=== PATIENT | female | born 1965 | race Caucasian/White ===

== ENCOUNTER 2018-07-09 10:52 | Emergency (ER) | payer BC, SELFPAY ==
[2018-07-09 11:06] VITALS: BP 148/85; PULSE 69; RESP 16; TEMP 36.4; O2SAT 97
--- NOTE | 2018-07-09 11:10 | ED.GENADUL_ITS ---
Disposition Clinical Impression: Abdominal pain Disposition: HOME Condition: Stable Instructions: Abdominal Pain (ED) Additional Instructions: Please return immediately to the emergency department if you develop any new or worsening symptoms or if you become otherwise concerned. It is extremely important that you make an appointment to be seen in follow-up by your primary care doctor within the next 1-2 weeks. Referrals: Suzie Bianchi MD, [place] [Primary Care Provider] - Medical Decision Making - Lab Data Laboratory Tests 07/09/18 07/09/18 07/09/18 11:13 12:28 13:00 WBC 13.87 H RBC 5.09 Hgb 14.8 Hct 43.6 MCV 85.7 MCH 29.1 MCHC 33.9 RDW 13.9 Plt Count 328 MPV 9.3 Immature Gran % 0.2 Neutrophils % 83.6 Lymphocytes % 14.6 Monocytes % 1.4 Eosinophils % 0.1 Basophils % 0.1 Absolute Neutrophils 11.60 H Absolute Lymphocytes 2.03 Absolute Monocytes 0.19 Absolute Eosinophils 0.01 Absolute Basophils 0.01 Sodium 139 Potassium 4.0 Chloride 103 Carbon Dioxide 23.7 Anion Gap 12.3 H BUN 14 Creatinine 0.62 Estimated GFR/1.73 m2 >= 60.00 Glucose 113 H Calcium 8.7 Total Bilirubin 0.3 AST 18 ALT 39 Alkaline Phosphatase 80 Total Protein 7.7 Albumin 3.5 Lipase 139 Urine Color Yellow Urine Clarity Clear Urine pH 6.0 Ur Specific Marion 1.020 Urine Protein Negative Urine Ketones Negative Urine Blood Moderate H Urine Nitrite Negative Urine Bilirubin Negative Urine Urobilinogen 0.2 Ur Leukocyte Esterase Negative Urine RBC 10-20 H Urine WBC 0-2 Ur Epithelial Cells Moderate Urine Crystals Few amorphous Urine Bacteria Moderate Urine Casts Negative Urine Mucus Negative Urine Other Few renal Ur Culture Indicated? No/sq. contamination Urine Glucose Negative Results reviewed for labs ordered during visit: Yes - Radiology Data CT abd/pelv per radiology: no acute process - Medical Decision Making Chantel Lopez is a 52-year-old woman with a history of hypothyroidism, obstructive sleep apnea presenting to the emergency department with right lower quadrant abdominal pain that began at 7 AM this morning, also with diarrhea since yesterday that is mild. On exam patient has right lower quadrant/right pelvic tenderness to palpation, with worsening right lower quadrant with positive McBurney's point tenderness. No other abdominal tenderness. Exam is otherwise unremarkable. Concern for appendicitis versus UTI versus less likely ovarian pathology versus other. Exam/history not consistent with ACS, sepsis PID/TOA, ovarian torsion. Plan for screening labs, CT scan, IV fluid hydration , IV pain control. CT scan without dye injection capabilities at this time due to malfunction. Discussed with patient that CT scan with IV dye is indicated. Discussed options with her including transfer to another facility with CT versus labs and noncontrast CT here with possible transfer if CT unrevealing versus transfer to another facility after IV placement, labs drawn, pain managed. Patient reports that she would like to leave at this time without any further workup and be transferred to another emergency department for evaluation. Patient requesting pain control. Her is with her to drive her. Plan for IM morphine. [facility] emergency physician not accepting as they have no beds in the case the patient would need admission. Patient accepted to [facility] emergency department for further evaluation and treatment. While discussing transfer [place] [facility], it was made known to me that CT scan here now functional with dye injection capabilities. Plan for labs, CT. Patient is amenable to the plan. Labs non-diagnostic. negative per nursing. Ct reported to me by radiology as negative. Lengthy discussion with Pt re: RTED precautions and importance of outpt f/u with PCP within 1-2 weeks. Pt is amenable to the plan. History of Present Illness - General Chief complaint: Abd Prob Stated complaint: ABDOMINAL PAIN Time Seen by Provider: 07/09/18 11:09 Source: patient, RN notes reviewed Mode of arrival: ambulatory Limitations: no limitations - History of Present Illness Initial comments: Keyonna Alicia is a 52-year-old woman with a history of hypothyroidism, obstructive sleep apnea presenting to the emergency department with abdominal pain. Patient reports that she developed right lower quadrant abdominal pain at approximately 7:00 this morning. Pain does not radiate. She has never had similar pain in the past. She has a history of C-sections and no other abdominal surgeries. She reports pain worse with movement. No change in appetite. She has had diarrhea for the past 2 days that is mild. No constipation. No fever, no vomiting, no cough, no shortness of breath, no other pain, no dysuria, no vaginal discharge. Perimenopausal, currently menstruating. Sexually monogamous with her . - Related Data Magnesium Oxide [Magnesium] 400 mg PO DAILY 03/27/14 Levothyroxine [Levothroid] 200 mcg PO DAILY 07/09/18 Allergies Allergy/AdvReac Type Severity Reaction Status Date / Time gluten Allergy BLOATING Unverified 07/09/18 12:24 YEAST Allergy BELLY Uncoded 07/09/18 12:24 UNCOMFORTABLE Review of Systems Constitutional: denies: fever Eyes: denies: eye pain ENT: denies: ear pain, throat pain, dental pain Respiratory: denies: cough, shortness of breath Cardiovascular: denies: chest pain Endocrine: denies: increased hunger, increased thirst Gastrointestinal: as per HPI, abdominal pain, diarrhea. denies: nausea, vomiting Genitourinary: denies: dysuria, discharge Musculoskeletal: denies: back pain, arthralgia, myalgia Skin: denies: rash Neurological: denies: headache Past Medical History - Past Medical History Hypothyroidism - Social History Smoking status: never smoker Alcohol use: occasionally Drug use: none General Exam - General Limitations: no limitations General appearance: alert, in no apparent distress, other (Pleasant, well and nontoxic appearing, conversing normally) - Head Head exam: Present: atraumatic, normocephalic, normal inspection - Eye Eye exam: Absent: scleral icterus, conjunctival injection Pupils: Absent: irregular, unequal, miosis, mydriatic - ENT ENT exam: Present: mucous membranes moist - Neck Neck exam: Present: normal inspection - Respiratory Respiratory exam: Present: normal lung sounds bilaterally. Absent: respiratory distress - Cardiovascular Cardiovascular Exam: Present: regular rate, normal rhythm, normal heart sounds - GI/Abdominal GI/Abdominal exam: Present: soft, tenderness (Right lower quadrant tenderness, positive McBurney's point tenderness. No pelvic TTP. Negative Moreno sign. No other abdominal tenderness. No peritoneal signs.). Absent: distended, guarding , rebound, mass - Extremities Exam Extremities exam: Present: normal inspection. Absent: pedal edema - Back Exam Back exam: Present: normal inspection. Absent: rash noted - Neurological Exam Neurological exam: Present: alert, normal gait, other (Grossly nonfocal, normal tone). Absent: altered - Psychiatric Psychiatric exam: Present: normal affect, normal mood - Skin Skin exam: Present: warm, dry, intact, normal color. Absent: rash Course Vital Signs - 24 hr 07/09/18 11:06 Temperature 36.4 C L Pulse 69 Respiratory 16 Rate Blood Pressure 148/85 Pulse Oximetry 97
[2018-07-09] MEDS: MORPHine 10 MG/ML VIAL 4 MG IM (12:08)
--- NOTE | 2018-07-09 12:09 | NUR.NOTE ---
Nursing Note: Pt allows [facility] IM for her pain while awaiting transfer information as [facility] unable to provide DI study necessary for further care.
--- NOTE | 2018-07-09 12:28 | DI.RPTCT_ITS ---
SYMPTOMS/DIAGNOSIS: RIGHT LOWER QUADRANT ABDOMINAL PAIN CT OF THE ABDOMEN AND PELVIS: There are no prior comparison exams. Images were performed from the lung bases through the ischial tuberosities after IV and without oral contrast. The lung bases are clear. The liver, spleen, pancreas, kidneys and right adrenal are unremarkable. There is a tiny nodule on the left adrenal, likely an adenoma. There is a single calcified stone in the gallbladder. There is no gallbladder wall thickening, or abnormal distention or evidence of biliary dilatation. The appendix appears normal. There is no bowel dilatation or inflammatory changes. The bladder is unremarkable. There is a fat-containing umbilical hernia. There is a rounded cystic area in the region of the cervix, which may represent a nabothian cyst. The aorta is normal in diameter. There are degenerative changes in the spine, as well as scoliosis, greatest at L3-4 through L5-S1. IMPRESSION: No acute abnormality. Incidental findings as mentioned above.
[2018-07-09] MEDS: Normal Saline 1,000 ML 1000 ML IV (12:40)
[2018-07-09 12:56] LABS: Bilirubin Negative (Negative); Blood Moderate (Negative); Clarity Clear; Glucose Negative (Negative); Ketones Negative (Negative); Leukocyte Esterase Negative (Negative); Nitrite Negative (Negative); Urobilinogen 0.2 EU/dL (Up TO 0.2)
[2018-07-09 13:07] LABS: Abs Immature Grans 0.03 k/cumm (0.0-0.09); Absolute Basophil Count 0.01 k/cumm (0.0-0.2); Absolute Eosinophil Count 0.01 k/cumm (0.0-0.7); Basophils % 0.1; Eosinophils % 0.1; HCT 43.6 % (36.0-46.0); HGB 14.8 g/dL (12.0-15.5); Immature Grans % 0.2; Lymphocytes % 14.6; Mean Corp. HGB Concentration 33.9 g/dL (32.0-36.0); Mean Corpuscular Hemoglobin 29.1 pg (27.0-33.0); Mean Corpuscular Volume 85.7 fL (80-95); Mean Platelet Volume 9.3 fL (8.0-11.0); Monocytes % 1.4; Neutrophils % 83.6; Platelet Count 328 x1000/uL (130-400); RBC 5.09 m/cumm (4.00-5.20); RBC Distribution Width 13.9 % (11.7-14.6); White Blood Cell Count 13.87 k/cumm (4.4-10.8)
[2018-07-09 13:08] LABS: WBC 0-2 HPF (0-5)
[2018-07-09 13:09] LABS: Absolute Lymphocyte Count 2.03 k/cumm (1.2-3.4); Absolute Monocyte Count 0.19 k/cumm (0.11-0.7)
[2018-07-09 13:09] LABS: Bacteria Moderate HPF (Negative); C & S Indicated? No/Sq. Contamination; Casts Negative LPF (Negative); Crystals Few Amorphous HPF (Negative); Epithelial Cells Moderate HPF (Negative); Mucus Negative (Negative); Other Cells Few Renal (Negative)
[2018-07-09 13:11] VITALS: BP 128/82; PULSE 78; RESP 22; TEMP 36.9; O2SAT 98
--- NOTE | 2018-07-09 13:13 | NUR.NOTE ---
Nursing Note: Pt will be staying at [facility] for further care as DI is now up and running. Pt is very happy not to have to travel to another facility.
[2018-07-09 13:30] LABS: ALT 39 U/L (12-78); AST 18 U/L (15-37); Albumin 3.5 g/dL (3.4-5.0); Alkaline Phosphatase 80 U/L (46-116); Anion Gap 12.3 mmol/L (3-11); BUN 14 mg/dL (7-18); Bilirubin, Total 0.3 mg/dL (0.2-1.0); CO2 23.7 mmol/L (21.0-32.0); CREATININE 0.62 mg/dL (0.55-1.02); Calcium 8.7 mg/dL (8.5-10.1); Chloride 103 mmol/L (98-107); Glucose 113 mg/dL (70-100); Lipase 139 U/L (73-393); Sodium 139 mmol/L (136-145); Total Protein 7.7 g/dL (6.4-8.2)
[2018-07-09] MEDS: Omnipaque 350 MG/ML 100 ML BTL IV (14:33)
[2018-07-09 15:49] VITALS: BP 133/67; PULSE 77; RESP 18; TEMP 36.3; O2SAT 99
--- NOTE | 2018-07-10 08:52 | PDOC.ERCMPRO ---
Care Management Progress Note 07/10-Dr. Josselyn Marte requested assistance with a PCP (Dr. Bianchi) f/u in 1-2 weeks for abdominal pain. Referral faxed to [facility] this am.
== END 2018-07-09 16:23 | disposition home or self-care (01) ==
PROVIDERS: Emergency Provider Student in an Organized Health Care Education/Training Program; PCP Family Medicine
DX: R10.31 Right lower quadrant pain (principal); R19.7 Diarrhea, unspecified
CPT/HCPCS: 36415; 80053; 81025; 83690; 96360; 96361; 96372; 99285; 74177; 81003; 81015; 85025; J3490

== ENCOUNTER 2019-03-28 07:06 | Outpatient (CLI) | payer BC, SELFPAY ==
[2019-03-28 07:35] LABS: Abs Immature Grans 0.01 k/cumm (0.0-0.09); Absolute Basophil Count 0.02 k/cumm (0.0-0.2); Absolute Lymphocyte Count 2.54 k/cumm (1.2-3.4); Absolute Monocyte Count 0.33 k/cumm (0.11-0.7); Absolute Neutrophil Count 3.43 k/cumm (1.2-6.7); Basophils % 0.3; Eosinophils % 1.6; HCT 43.7 % (36.0-46.0); HGB 14.6 g/dL (12.0-15.5); Immature Grans % 0.2; Lymphocytes % 39.5; Mean Corp. HGB Concentration 33.4 g/dL (32.0-36.0); Mean Corpuscular Hemoglobin 29.7 pg (27.0-33.0); Mean Corpuscular Volume 88.8 fL (80-95); Mean Platelet Volume 9.1 fL (8.0-11.0); Monocytes % 5.1; Neutrophils % 53.3; Platelet Count 301 x1000/uL (130-400); RBC 4.92 m/cumm (4.00-5.20); RBC Distribution Width 13.8 % (11.7-14.6); White Blood Cell Count 6.43 k/cumm (4.4-10.8)
[2019-03-28 07:59] LABS: Hemoglobin A1C 5.8 % (4.5-6.2)
[2019-03-28 08:55] LABS: ALT 65 U/L (12-78); AST 37 U/L (15-37); Albumin 3.5 g/dL (3.4-5.0); Alkaline Phosphatase 74 U/L (46-116); Anion Gap 8.1 mmol/L (3-11); BUN 18 mg/dL (7-18); Bilirubin, Total 0.4 mg/dL (0.2-1.0); CO2 28.9 mmol/L (21.0-32.0); CREATININE 0.77 mg/dL (0.55-1.02); Calcium 9.2 mg/dL (8.5-10.1); Chloride 103 mmol/L (98-107); Cholesterol 189 mg/dL (50-200); Glucose 108 mg/dL (70-100); HDL Cholesterol 48 mg/dL (40-60); LDL CHOLESTEROL 130 mg/dL (<100); Potassium 4.1 mmol/L (3.5-5.1); Sodium 140 mmol/L (136-145); TSH 4.46 uIU/mL (0.358-3.74); Triglyceride 66 mg/dL (30-150)
== END 2019-03-28 07:26 ==
PROVIDERS: PCP Family Medicine; Visit Provider Naturopath
DX: E03.9 Hypothyroidism, unspecified (principal); E78.5 Hyperlipidemia, unspecified; R73.09 Other abnormal glucose; R94.4 Abnormal results of kidney function studies
CPT/HCPCS: 36415; 80053; 80061; 83721; 83036; 84443; 85025

== ENCOUNTER 2019-05-02 16:34 | Outpatient (CLI) | payer BC, SELFPAY ==
--- NOTE | 2019-05-02 16:00 | DI.RAD_ITS ---
SYMPTOM/DIAGNOSIS: COUGH, URI J06.9 CHEST X-RAY: PA , lateral. No priors. The heart is normal in size. The lungs are clear. The mediastinal structures and pleura appear intact. CONCLUSION: Normal chest.
== END 2019-05-02 16:54 ==
PROVIDERS: PCP Family Medicine; Visit Provider Family Medicine
DX: J06.9 Acute upper respiratory infection, unspecified (principal); R05 Cough
CPT/HCPCS: 71046

== ENCOUNTER 2019-05-29 15:33 | Outpatient (CLI) | payer BC, SELFPAY ==
[2019-05-29 16:10] LABS: Bilirubin Negative (Negative); Blood Small (Negative); Clarity Clear (Clear); Glucose Negative (Negative); Ketones Negative (Negative); Leukocyte Esterase Small (Negative); Nitrite Negative (Negative); Urobilinogen 0.2 EU/dL (Up TO 0.2); pH 5.5 (5-8)
[2019-05-29 16:23] LABS: Bacteria Moderate HPF (Negative); C & S Indicated? C&S Done As Ordered; Epithelial Cells Moderate HPF (Negative)
[2019-05-29 16:25] LABS: WBC >50 HPF (0-5)
== END 2019-05-29 15:53 ==
PROVIDERS: PCP Family Medicine; Visit Provider Family Medicine
DX: R30.0 Dysuria (principal)
CPT/HCPCS: 81003; 81015; 87086

== ENCOUNTER 2019-06-04 11:13 | Outpatient (REF) | payer BC, SELFPAY ==
[2019-06-04 13:46] LABS: Bilirubin Negative (Negative); Blood Negative (Negative); Clarity Clear (Clear); Glucose Negative (Negative); Ketones Negative (Negative); Leukocyte Esterase Negative (Negative); Nitrite Negative (Negative); Specific Gravity 1.015 (1.005-1.025); Urobilinogen 0.2 EU/dL (Up TO 0.2)
== END 2019-06-04 11:33 ==
LOC: LBN 11:13
PROVIDERS: PCP Family Medicine; Visit Provider Family Medicine
DX: R30.0 Dysuria (principal)
CPT/HCPCS: 81003

== ENCOUNTER 2019-09-11 10:09 | Outpatient (CLI) | payer BC, SELFPAY ==
[2019-09-11 11:46] LABS: TSH (W/Ref FT4) 0.05 uIU/mL (0.36-3.74)
[2019-09-11 12:13] LABS: FREE T4 1.15 ng/dL (0.76-1.46)
== END 2019-09-11 10:29 ==
PROVIDERS: PCP Family Medicine; Visit Provider Family Medicine
DX: E03.9 Hypothyroidism, unspecified (principal)
CPT/HCPCS: 36415; 81003; 84439; 84443

== ENCOUNTER 2020-01-17 07:00 | Outpatient (CLI) | payer BC, SELFPAY ==
[2020-01-17 08:29] LABS: Hemoglobin A1C 5.9 % (3.8-5.6)
[2020-01-17 08:43] LABS: Anion Gap 9.4 mmol/L (3-11); BUN 19 mg/dL (7-18); CO2 28.6 mmol/L (21.0-32.0); CREATININE 0.69 mg/dL (0.55-1.02); Calcium 8.9 mg/dL (8.5-10.1); Chloride 104 mmol/L (98-107); Glucose 110 mg/dL (74-106); Potassium 4.4 mmol/L (3.5-5.1); Sodium 142 mmol/L (136-145); TSH (W/Ref FT4) 0.71 uIU/mL (0.36-3.74)
== END 2020-01-17 07:20 ==
PROVIDERS: PCP Family Medicine; Visit Provider Family Medicine
DX: E03.9 Hypothyroidism, unspecified (principal); E11.9 Type 2 diabetes mellitus without complications; R73.09 Other abnormal glucose
CPT/HCPCS: 36415; 80048; 83036; 84443

== ENCOUNTER 2020-03-09 10:01 | Outpatient (CLI) | payer BC, SELFPAY ==
[2020-03-11 09:35] LABS: COVID-19 RT-PCR Result Not Detected (NotDetected)
== END 2020-03-09 10:21 ==
PROVIDERS: PCP Family Medicine; Visit Provider Family Medicine
DX: R50.9 Fever, unspecified (principal)
CPT/HCPCS: U0003

== ENCOUNTER 2020-09-25 11:50 | Outpatient (CLI) | payer BC, SELFPAY ==
[2020-09-29 20:28] LABS: Patient Race White; SARS-CoV-2 RNA Undetected (Undetected); SARS-CoV-2 Specimen Source Nasal
== END 2020-09-25 12:10 ==
PROVIDERS: PCP Family Medicine; Visit Provider Family Medicine
DX: R05 Cough (principal)
CPT/HCPCS: U0003

== ENCOUNTER 2020-12-09 04:39 | Outpatient (CLI) | payer BC, SELFPAY ==
[2020-12-09 10:46] LABS: TSH (W/Ref FT4) 2.06 uIU/mL (0.36-3.74)
== END 2020-12-09 04:59 ==
PROVIDERS: PCP Family Medicine; Visit Provider Family Medicine
DX: E03.9 Hypothyroidism, unspecified (principal)
CPT/HCPCS: 36415; 84443

== ENCOUNTER 2022-05-12 10:06 | Outpatient (CLI) | payer BC, SELFPAY | END 2022-05-12 10:07 | disposition home or self-care (01) | LOC: LBO 10:08 | PROVIDERS: PCP Student in an Organized Health Care Education/Training Program ==

== ENCOUNTER 2022-06-02 04:12 | Outpatient (CLI) | payer BC, SELFPAY ==
[2022-06-02 07:52] LABS: Anion Gap 8.3 mmol/L (3-11); BUN 21 mg/dL (7-18); CO2 26.7 mmol/L (21.0-32.0); CREATININE 0.7 mg/dL (0.55-1.02); Calcium 9.2 mg/dL (8.5-10.1); Chloride 103 mmol/L (98-107); Glucose 110 mg/dL (74-106); Potassium 4.1 mmol/L (3.5-5.1); Sodium 138 mmol/L (136-145); TSH (W/Ref FT4) 0.25 uIU/mL (0.36-3.74)
[2022-06-02 08:11] LABS: FREE T4 1.24 ng/dL (0.76-1.46)
[2022-06-02 08:22] LABS: Calculated LDL 158 mg/dL (<100); Cholesterol 227 mg/dL (<200); HDL Cholesterol 53 mg/dL (40-60); Triglyceride 80 mg/dL (<150)
== END 2022-06-02 04:13 | disposition home or self-care (01) ==
LOC: LBO 04:13
PROVIDERS: PCP Student in an Organized Health Care Education/Training Program; Visit Provider Student in an Organized Health Care Education/Training Program
DX: E03.9 Hypothyroidism, unspecified (principal); R79.89 Other specified abnormal findings of blood chemistry; Z13.220 Encounter for screening for lipoid disorders
CPT/HCPCS: 36415; 80048; 80061; 84439; 84443

== ENCOUNTER 2022-12-20 16:48 | Outpatient (CLI) | payer BC, SELFPAY ==
[2022-12-20 17:05] LABS: TSH (W/Ref FT4) 0.75 uIU/mL (0.36-3.74)
== END 2022-12-20 16:49 | disposition home or self-care (01) ==
LOC: LBO 16:49
PROVIDERS: PCP Student in an Organized Health Care Education/Training Program; Visit Provider Student in an Organized Health Care Education/Training Program
DX: E03.9 Hypothyroidism, unspecified (principal)
CPT/HCPCS: 36415; 84443

== ENCOUNTER 2023-03-10 01:35 | Outpatient (CLI) | payer BC, SELFPAY ==
--- OUTSIDE RECORDS SUMMARY | 2023-03-10 01:37 | XMS_ITS ---
Author Name James Grijalva Address [address], [place] [id number] Organization [facility] Address [address], [place] [id number] Care Team Providers Care [facility] Name Role Phone James Grijalva Unavailable [phone] PROBLEMS Type Condition ICD9-CM Code [id number] Code Onset Dates Condition Status SNOMED Code Problem Depression 311 Active 223391733 Problem Perimenopause N95.1 Active 679517316 Problem Hypothyroidism, unspecified E03.9 Active 84357123 Problem Hypothyroidism (acquired) 244.9 Active 77377551 Problem Obstructive sleep apnea syndrome 780.59 Active 93536106 Problem ALLERGIC RHINITIS-FOOD 477.1 Active 830832398 Problem DUB (dysfunctional uterine bleeding) N93.8 Active 570161287 ALLERGIES No Known Allergies ENCOUNTERS Encounter Location Date Diagnosis [address] [id number] Jan, Encounter for screening mammogram for malignant neoplasm of breast Z12.[address] [id number] May, 2021 Encounter for gynecological examination Z01.419 ; Encounter for other screening for malignant neoplasm of breast Z12.39 ; Hypothyroidism, unspecified E03.9 and DUB (dysfunctional uterine bleeding) N93.[address] [id number] Dec, 2020 Encounter for screening mammogram for malignant neoplasm of breast Z12.31 [facility] [address] [facility] [address], [place] [id number] Apr, Encounter for gynecological examination Z01.419 ; Encounter for other screening for malignant neoplasm of breast Z12.39 and Perimenopause N95.1 [facility] [address] [facility] [address], [place] [id number] Jan, Encounter for other screening for malignant neoplasm of breast Z12.[address] [id number] Jan, Encounter for screening for malignant neoplasm of cervix Z12.4 ; Encounter for screening mammogram for malignant neoplasm of breast Z12.31 and DUB (dysfunctional uterine bleeding) N93.8 [facility] [address] [place] [id number] March, ALLERGIC RHINITIS-FOOD 477.1 [facility] [address] [place] [id number] March, [facility] [address] [place] [id number] Feb, ALLERGIC RHINITIS-FOOD 477.1 ; Obstructive sleep apnea syndrome 780.59 ; Hypothyroidism (acquired) 244.9 and Depression 311 IMMUNIZATIONS No Known Immunizations SOCIAL HISTORY Qualifiers Date Never Smoker REASON FOR REFERRAL FUNCTIONAL STATUS PLAN OF CARE Activity Details VITAL SIGNS Height 5 ft 6.5 in in 2021-06-11 Height 5 ft 6.5 in in 2020-05-26 Height 5 ft 6.5 in in 2019-02-13 Weight 276 lbs 2021-06-11 Weight 278 lbs 2020-05-26 Heart Rate 84 /min 2011-03-14 Respiratory Rate 16 /min 2011-03-14 BMI 43.88 kg/m2 2021-06-11 BMI 44.19 kg/m2 2020-05-26 Blood pressure systolic 128 mm Hg Blood pressure diastolic 84 mm Hg 2021-05 MEDICATIONS Medication Instructions Dosage Frequency Start Date End Date Duration Status Magnesium Citrate 200 MG Orally bid 1 tab(s) 12h Active Levothyroxine Sodium 150 MCG Orally Once a day 1 tablet every morning on an empty stomach 24h Active Estradiol 10 MCG 28 Active Benzonatate 100 MG take 1 capsule by mouth three times a day if needed for cough 10 Not-Takin g PROCEDURES Procedure Date Ordered Result Body Site PRICK TESTS April 08, 2011 RESULTS Name Result Date Reference Range MG MAMMOGRAPHY BILATERAL SCREENING 9-27 MG MAMMOGRAPHY BILATERAL SCREENING 7-16 MG MAMMOGRAPHY BILATERAL SCREENING 4-17 Pap Lb, HPV-hr 2019-02-13 . Note: Clinical history: DIAGNOSIS: Neg YAQUELIN neg HR HPV Specimen adequacy: Additional comment: Recommendation: Performed by: Electronically signed by: Test ordered: Maturation index: Amended report: Addendum: QC reviewed by: Cytology history: Special procedure: QA comment: Diagnosis provided by: Source: Pathologist provided ICD9: Clinician provided ICD9: Interpretation HPV, high-risk LBP CPT Code Automation *ALLERGNS (96) ([id number]) 2011-03-24 ALLERGEN GLUTEN IGE ([id number]) 2011-03-24 ALLERGEN GLUTEN IGE ([id number]) REASON FOR VISIT Wind Technician Est WWE, SPRAY WORKER well woman, mammo order, SPRAY WORKER Well woman exam, Mammogram, *SPRAY WORKER well woman, SPRAY WORKER wellwoman, mammogram order, SPRAY WORKER RENEW, IRR. irr. very painful bldg menses, ent-allergy testing, ent-allergy testing, ent food allergy consult Insurance Providers Health Insurance Type Health Plan Insurance Address Health Plan Insurance Phone Health Plan Insurance Name Health Plan Coverage Dates Member ID Patient Relationship to Subscriber Patient Address Patient Phone Patient Name Patient Date of Subscriber ID Subscriber Name Subscriber Date of Group No [place] [address] [facility] [address] [place] Keyonna Ravin [id number] [employer] [address] [place] [id number] [employer] Keyonna Alicia [id number]
[2023-03-10 08:48] LABS: Anion Gap 5.6 mmol/L (3-11); BUN 17 mg/dL (7-18); CO2 29.4 mmol/L (21.0-32.0); CREATININE 0.8 mg/dL (0.55-1.02); Calcium 9.3 mg/dL (8.5-10.1); Calculated LDL 175 mg/dL (<100); Chloride 104 mmol/L (98-107); Cholesterol 239 mg/dL (<200); Estimated GFR 86.42 (mL/min/1.73m2); Glucose 112 mg/dL (74-106); HDL Cholesterol 50 mg/dL (40-60); Magnesium 2.3 mg/dL (1.8-2.4); Potassium 4.4 mmol/L (3.5-5.1); Sodium 139 mmol/L (136-145); Triglyceride 72 mg/dL (<150)
[2023-03-10 09:19] LABS: T4 9.9 ug/dL (4.7-13.3); TSH 2.08 uIU/mL (0.36-3.74)
[2023-03-10 09:34] LABS: Vitamin D 25 Total 37.8 ng/mL (30-100)
[2023-03-10 18:41] LABS: T3,Free 3.7 pg/mL (2.8-5.3)
[2023-03-10 19:22] LABS: Thyroperoxidase Antibody >1300 U/mL (<=60)
[2023-03-13 14:50] LABS: ANA Interpretation Positive (Negative); ANA Titer Pattern 1:320 Speckled
[2023-03-17 14:40] LABS: dsDNA Ab, IgG 38.6 IU/mL (<30.0)
== END 2023-03-10 01:36 | disposition home or self-care (01) ==
LOC: LBO 01:35
PROVIDERS: Naturopath; PCP Student in an Organized Health Care Education/Training Program; Visit Provider Student in an Organized Health Care Education/Training Program
DX: E03.9 Hypothyroidism, unspecified (principal); R73.03 Prediabetes; R53.83 Other fatigue; E63.8 Other specified nutritional deficiencies; G43.909 Migraine, unspecified, not intractable, without status migrainosus
CPT/HCPCS: 36415; 80048; 80061; 82306; 83036; 83735; 84436; 84443; 84481; 86038; 86225; 86376

== ENCOUNTER 2023-03-27 04:40 | Outpatient (CLI) | payer BC, SELFPAY ==
[2023-03-27 16:36] LABS: TSH (W/Ref FT4) 0.54 uIU/mL (0.36-3.74)
== END 2023-03-27 04:41 | disposition home or self-care (01) ==
PROVIDERS: PCP Student in an Organized Health Care Education/Training Program; Visit Provider Student in an Organized Health Care Education/Training Program
DX: E03.9 Hypothyroidism, unspecified (principal)
CPT/HCPCS: 36415; 84443

== ENCOUNTER 2023-04-19 05:40 | Outpatient (CLI) | payer BC, SELFPAY ==
[2023-04-21 12:56] LABS: Sm (Smith) Ab, IgG 2.2 Units (<20.0)
[2023-04-21 14:39] LABS: SS-B (La) Ab, IgG 1.7 Units (<20.0)
[2023-04-21 15:13] LABS: SS-A Antibody 1.4 Units (<20.0)
== END 2023-04-19 05:41 | disposition home or self-care (01) ==
LOC: LBO 05:40
PROVIDERS: PCP Student in an Organized Health Care Education/Training Program; Visit Provider Naturopath
DX: R76.8 Other specified abnormal immunological findings in serum (principal)
CPT/HCPCS: 86235

== ENCOUNTER 2023-08-15 19:22 | Outpatient (CLI) | payer BC, SELFPAY ==
[2023-08-15 17:05] LABS: Hemoglobin A1C 5.7 % (<5.7)
== END 2023-08-15 19:23 | disposition home or self-care (01) ==
LOC: LBO 19:22
PROVIDERS: PCP Student in an Organized Health Care Education/Training Program; Visit Provider Nurse Practitioner
DX: R73.03 Prediabetes (principal); E03.9 Hypothyroidism, unspecified
CPT/HCPCS: 36415; 83036; 84443

== ENCOUNTER 2023-11-06 04:55 | Outpatient (CLI) | payer BC, SELFPAY ==
--- OUTSIDE RECORDS SUMMARY | 2023-11-06 04:56 | XMS_ITS | Continuity of Care Document ---
Author Name Unknown Organization [facility] Address [address] [place] [id number] Care Team Providers Care Lay Midwife Name Role Phone Unavailable, Physician Primary Care Physician Un available Encounter [place] FIN NBR [id number] Date(s): 08/24/23 - 08/24/[address] [id number] [phone] Discharge Disposition: Home or Self Care Attending Physician: James Grijalva MD, FACOG Admitting Physician: James Grijalva MD, FACOG Referring Physician: James Grijalva MD, FACOG Allergies, Adverse Reactions, Alerts No Known Allergies Assessment and Plan Future Appointments Future Scheduled Tests Radiology* MG Mammo Screening Bilateral 08/24/23 Medications estradiol 10 mcg vaginal insert 0 Refill(s) Start Date: 12/15/22 Status: Ordered levothyroxine 150 mcg (0.15 mg) oral tablet 0 Refill(s) Start Date: 12/15/22 Status: Ordered magnesium citrate BID, 1 Unknown, 0 Refill(s) Start Date: 12/15/22 Status: Ordered Problem List Condition Confirmation Course Effective Dates Status Health [facility] Informant Menopause Confirmed Active Migraines Confirmed Active Obesity Confirmed Active Procedures Procedure Date Related Diagnosis Body Site Status section 01/18/06 Complete d Dilation and curettage Co mpleted Social History Social History Type Response Tobacco Never tobacco user T obacco Use:. Sex Patient Care team information Care Team Personnel Name: Unavailable, Physician Position: No Access Member Role: Primary Care Physician Care Team Related Persons Name: ANIVAL DIETZ Name: KARIN BARBA Address: Home [address], [place] [id number] [facility] Name: REGINALD BARBA
[2023-11-06 12:47] LABS: Abs Immature Grans 0.01 10^3/uL (0.0-0.06); Absolute Basophil Count 0.02 10^3/uL (0.0-0.2); Absolute Eosinophil Count 0.08 10^3/uL (0.0-0.7); Absolute Lymphocyte Count 3.21 10^3/uL (1.2-3.4); Absolute Monocyte Count 0.29 10^3/uL (0.1-0.8); Absolute Neutrophil Count 2.98 10^3/uL (1.2-6.7); Basophils % 0.3; Eosinophils % 1.2; HCT 44.7 % (36.0-46.0); HGB 14.7 g/dL (11.2-15.7); Immature Grans % 0.2; Lymphocytes % 48.7; MCH 29.6 pg (27.0-33.0); MCHC 32.9 % (32.0-36.0); MCV 90 fL (80-95); Monocytes % 4.4; Neutrophils % 45.2; Platelet Count 266 10^3/uL (130-400); RBC 4.96 10^6/uL (3.93-5.22); RDW 13.1 % (11.7-14.6); RDW-SD 43.4 fL; WBC 6.59 10^3/uL (4.4-10.8)
[2023-11-06 13:20] LABS: Hemoglobin A1C 5.7 % (<5.7)
[2023-11-06 13:22] LABS: Anion Gap 6.8 mmol/L (3-11); BUN 22 mg/dL (7-18); CO2 29.2 mmol/L (21.0-32.0); CREATININE 0.7 mg/dL (0.55-1.02); Calcium 9.4 mg/dL (8.5-10.1); Chloride 104 mmol/L (98-107); Estimated GFR 100.81 (mL/min/1.73m2); Glucose 96 mg/dL (74-106); Sodium 140 mmol/L (136-145); TSH (W/Ref FT4) 0.47 uIU/mL (0.36-3.74)
[2023-11-06 22:39] LABS: Thyroglobulin Antibody 210 U/mL (<=60)
[2023-11-07 15:15] LABS: dsDNA Ab, IgG <22.0 IU/mL (<27.0)
== END 2023-11-06 04:56 | disposition home or self-care (01) ==
LOC: LBO 04:55
PROVIDERS: PCP Student in an Organized Health Care Education/Training Program; Visit Provider Student in an Organized Health Care Education/Training Program
DX: E03.9 Hypothyroidism, unspecified (principal); R00.0 Tachycardia, unspecified; N28.9 Disorder of kidney and ureter, unspecified; R73.9 Hyperglycemia, unspecified; Z71.3 Dietary counseling and surveillance; Z91.89 Other specified personal risk factors, not elsewhere classified; R73.09 Other abnormal glucose; E78.5 Hyperlipidemia, unspecified; R76.8 Other specified abnormal immunological findings in serum
CPT/HCPCS: 36415; 80048; 83036; 84443; 85025; 86225; 86800

== ENCOUNTER 2023-11-24 03:26 | Outpatient (CLI) | payer BC, SELFPAY ==
[2023-11-24 10:35] LABS: FREE T4 0.75 ng/dL (0.76-1.46)
[2023-11-24 10:40] LABS: TSH (W/Ref FT4) 9.64 uIU/mL (0.36-3.74); Uric Acid 3.6 mg/dL (2.6-6.0)
[2023-11-24 10:46] LABS: D-Dimer 281 ng/mlFEU (<500)
[2023-11-24 11:15] LABS: Vitamin D 25 Total 38.6 ng/mL (30-100)
[2023-11-24 20:10] LABS: Fibrinogen 354 mg/dL (171-384)
[2023-11-24 20:20] LABS: T3,Free 2.8 pg/mL (2.8-5.3)
[2023-11-24 21:18] LABS: Thyroperoxidase Antibody >1300 U/mL (<=60)
[2023-11-26 15:55] LABS: Anaplasma phagocytophilum Negative (Negative); B. miyamotoi PCR Negative (Negative); Babesia divergens/MO-1 Negative (Negative); Babesia duncani Negative (Negative); Babesia microti Negative (Negative); Ehrlichia chaffeensis Negative (Negative); Ehrlichia ewingii/canis Negative (Negative); Ehrlichia muris eauclairensis Negative (Negative)
[2023-11-27 09:28] LABS: Lyme Ab w Rflx to Lyme Confirm Negative (Negative)
[2023-11-28 10:35] LABS: Thyrotropin Receptor Ab <1.10 IU/L
[2023-11-29 10:32] LABS: Thyroxine Binding Globulin 22 mcg/mL (11-27)
[2023-11-29 17:50] LABS: Thyroid Stimulating Immunoglob <1.0 TSI index (<=1.3)
[2023-11-30 15:10] LABS: T3 (Triiodothyronine) Reverse 11 ng/dL (10-24)
== END 2023-11-24 03:27 | disposition home or self-care (01) ==
LOC: LBO 03:26
PROVIDERS: PCP Student in an Organized Health Care Education/Training Program; Referring Provider Student in an Organized Health Care Education/Training Program; Visit Provider Student in an Organized Health Care Education/Training Program
DX: E03.9 Hypothyroidism, unspecified (principal); D84.89 Other immunodeficiencies; E06.3 Autoimmune thyroiditis; T14.8XXA Other injury of unspecified body region, initial encounter; W57.XXXA Bitten or stung by nonvenomous insect and other nonvenomous arthropods, initial encounter; Z79.899 Other long term (current) drug therapy; R76.0 Raised antibody titer
CPT/HCPCS: 36415; 82306; 85384; 86141; 87798; 84235; 84439; 84442; 84443; 84445; 84481; 84482; 84550; 85379; 86376; 86618

== ENCOUNTER 2025-06-06 01:05 | Outpatient (CLI) | payer BC, SELFPAY ==
[2025-06-06 08:36] LABS: Hemoglobin A1C 5.5 % (<5.7)
[2025-06-06 09:08] LABS: ALT 30 U/L (14-59); AST 14 U/L (15-37); Albumin 3.3 g/dL (3.4-5.0); Alkaline Phosphatase 66 U/L (46-116); Anion Gap 8.6 mmol/L (3-11); BUN 18 mg/dL (7-18); Bilirubin, Total 0.4 mg/dL (0.2-1.0); CO2 28.4 mmol/L (21.0-32.0); Calcium 9.0 mg/dL (8.5-10.1); Chloride 106 mmol/L (98-107); Estimated GFR 103.98 (mL/min/1.73m2); Glucose 110 mg/dL (74-106); Potassium 4.1 mmol/L (3.5-5.1); Sodium 143 mmol/L (136-145); T4 7.5 ug/dL (4.7-13.3); TSH (W/Ref FT4) 6.11 uIU/mL (0.36-3.74); Total Protein 6.9 g/dL (6.4-8.2)
[2025-06-06 18:34] LABS: T3, Total 115 ng/dL (97-169)
== END 2025-06-06 01:06 | disposition home or self-care (01) ==
PROVIDERS: PCP Student in an Organized Health Care Education/Training Program; Visit Provider Family Medicine
DX: R73.03 Prediabetes (principal); E63.9 Nutritional deficiency, unspecified; E03.9 Hypothyroidism, unspecified
CPT/HCPCS: 36415; 80053; 83036; 84436; 84439; 84443; 84480